=== PATIENT | male | born 1965 | race Caucasian/White ===

== ENCOUNTER 2024-10-05 18:46 | Emergency (ER) | payer OTHER ==
[~2024-10-05] VITALS: Ht 180.3 cm; Wt 86.4 kg
[2024-10-05 18:47] VITALS: BP 130/84; PULSE 87; RESP 18; TEMP 98.2; O2SAT 99
[2024-10-05] MEDS: glucagon, human recombinant 1mg kit IM ONE (19:01)
== END 2024-10-05 20:14 | disposition left against medical advice (07) ==
LOC: ER 18:47
DX: T18.8XXA Foreign body in other parts of alimentary tract, initial encounter (principal); Z53.21 Procedure and treatment not carried out due to patient leaving prior to being seen by health care provider; W44.F3XA Food entering into or through a natural orifice, initial encounter; Y93.89 Activity, other specified; Y92.89 Other specified places as the place of occurrence of the external cause; Y99.8 Other external cause status
CPT/HCPCS: 96372; J1610